=== PATIENT | female | born 1970 | race Caucasian/White ===

== ENCOUNTER → 2020-04-26 | Outpatient (CLI) | payer OTHER ==
--- NOTE | 2020-04-26 17:46 | Diagnostic Imaging Report ---
INDICATION: Chronic back pain. EXAMINATION: Thoracic spine. FINDINGS: AP and lateral views of the thoracic spine show sclerotic curvature of the lower half of the thoracic spine convex left with 14 degrees of curvature. Vertebral alignment is normal. There is minimal spondylosis with small osteophytes forming anteriorly. Disc spaces are well maintained. IMPRESSION: Mild spondylosis and scoliosis. No acute abnormality is seen. Dictated by: Dictated on workstation # [id number]
--- NOTE | 2020-04-26 17:48 | Diagnostic Imaging Report ---
CLINICAL INDICATION: Patient with chronic neck and back pain. EXAM: X-ray of the cervical spine, 3 views. COMPARISON: None. FINDINGS: There is no acute cervical spine fracture or dislocation. There is moderate loss of disk space height at the C4-C5 and C6-C7 levels. There are small degenerative spurs involving the C3-C4, C4-C5, and C6-C7 levels. There is mild facet arthropathy. There is no prevertebral soft tissue swelling. Odontoid views are unremarkable. IMPRESSION: Cervical spine degenerative disease which is most pronounced at the C4-C5 and C5-C6 levels with moderate amount of disk disease seen at these levels. Dictated by: Dictated on workstation # [id number]
== END ==
LOC: RAD 16:47
PROVIDERS: ATTEND Internal Medicine
DX: M47.813 Spondylosis without myelopathy or radiculopathy, cervicothoracic region (principal); M41.84 Other forms of scoliosis, thoracic region
CPT/HCPCS: 72040; 72070